=== PATIENT | male | born 1965 | race African-American/Black ===

== ENCOUNTER 2021-12-06 21:06 | Emergency (ER) | payer MEDICAID ==
[~2021-12-06] VITALS: Ht 172.7 cm; Wt 68.0 kg
[2021-12-06] MEDS ORDERED: KETOROLAC 60MG/2ML VIAL IM ONE (22:00)
[2021-12-07] MEDS ORDERED: ACET-2708 MT (04:34)
[2021-12-07 05:00] VITALS: BP 132/60
== END 2021-12-07 05:00 | disposition home or self-care (01) ==
LOC: ER 21:06
DX: M25.552 Pain in left hip (principal); G89.11 Acute pain due to trauma; V13.4XXA Pedal cycle driver injured in collision with car, pick-up truck or van in traffic accident, initial encounter; Y93.55 Activity, bike riding; Y92.488 Other paved roadways as the place of occurrence of the external cause; R03.0 Elevated blood-pressure reading, without diagnosis of hypertension
CPT/HCPCS: 72170; 96372; 99285; J1885

== ENCOUNTER 2025-02-05 20:18 | Emergency (ER) | payer SELFPAY ==
[~2025-02-05] VITALS: Ht 167.6 cm; Wt 64.0 kg
[~2025-02-05 20:18] MED LIST: ACET-2708 MT
[2025-02-05 20:31] VITALS: O2SAT 99
[2025-02-05] MEDS: ACETAMINOPHEN 500MG TABLET PO ONE (22:37)
[2025-02-05] MEDS ORDERED: IBUP-1455 MT (23:33)
[2025-02-05 23:36] VITALS: BP 138/93; PULSE 82; RESP 15; TEMP 36.9; O2SAT 100
== END 2025-02-05 23:40 | disposition home or self-care (01) ==
LOC: ER 20:18
DX: S43.101A Unspecified dislocation of right acromioclavicular joint, initial encounter (principal); S09.90XA Unspecified injury of head, initial encounter; H92.01 Otalgia, right ear; X58.XXXA Exposure to other specified factors, initial encounter; Y93.89 Activity, other specified; Y92.89 Other specified places as the place of occurrence of the external cause; Y99.8 Other external cause status
CPT/HCPCS: 71045; 73030; 99284

== ENCOUNTER 2025-02-25 20:02 | Emergency (ER) | payer MEDICAID ==
[~2025-02-25] VITALS: Ht 167.6 cm; Wt 69.1 kg
[~2025-02-25 20:02] MED LIST changes: +IBUP-1455 MT
[2025-02-25 20:23] VITALS: O2SAT 99
[2025-02-25] MEDS ORDERED: OFLO5DRO4 RIGHT EAR (21:42)
[2025-02-25 22:02] VITALS: BP 168/96; PULSE 79; RESP 15; TEMP 36.9; O2SAT 100
== END 2025-02-25 22:04 | disposition home or self-care (01) ==
LOC: ER 20:02
DX: H60.90 Unspecified otitis externa, unspecified ear (principal)
CPT/HCPCS: 99283